=== PATIENT | female | born 1940 | race Caucasian/White ===

== ENCOUNTER 2017-04-17 15:15 | Emergency (ER) | payer MEDICARE, BC ==
[~2017-04-17] VITALS: Ht 170.2 cm; Wt 62.0 kg
[~2017-04-17 15:15] MED LIST: AMLO5 PO; ASPI81TA82 PO; BUDE3CAP PO; COZA100T PO; FENO54TA PO; LOVA40TA PO; METF500 PO; NEBI5 PO
[2017-04-17 15:19] VITALS: BP 150/88; PULSE 104; RESP 18; TEMP 98.7; O2SAT 97
--- NOTE | 2017-04-17 16:42 | PD ---
HPI Chief Complaint: GI Complaint Time Seen by Provider: 16:40 Travel History International Travel<30 days: No Contact w/Intl Traveler<30days: No Traveled to known affect area: No History of Present Illness HPI 76 YO F with PMH of HTN, anxiety presents to the ED for evaluation of 11 day history of nausea, vomiting and diarrhea. Patient states symptoms onset after she ate a bite of a "bad" tuna and mayonnaise sandwich. Patient endorses multiple episodes of watery diarrhea since then. She also endorses intermittent nausea. She endorses one episode of very dark vomit which she states "looked like poop" three days ago. States that she spoke with the nurse practitioner Dr. Raphael office who stated she could take Imodium 3 days ago. She endorses 3 doses of Imodium and no further bowel movements. The patient endorses upper and lower endoscopy within the past 5 years. She has a history of collagenous colitis. She states that the nausea has subsided today. She is here to have one episode of very dark urine evaluated. She denies dysuria, increased urgency. She has follow up appointments with PCP and GI upcoming. GI: Dr. Duvall. PCP: Dr. Frank [facility] Past Medical History High Cholesterol: Yes Diabetes: Yes Diminished Hearing: Yes Hypertension: Yes Triglycerides - High: Yes ?: Not Past Surgical History Gynecologic Surgery: Yes (Bilat. Mastectomy (non Cancerous)) Hysterectomy: Yes Joint Replacement: Yes (Total RIGHT HIP (2009)) Other Surgery: Yes (Breast implant s/p mastectomy) Social History Alcohol Use: No Tobacco Use: No (Quit in ) Substance Use: No Allergies-Medications Reported Meds & Prescriptions Reported Meds & Active Scripts Active Macrobid (Nitrofurantoin Monoh/Nitrofur Macro) 100 Mg Cap 100 Mg PO BID 5 Days Reported Aspir-81 (Aspirin) 81 Mg Tab 81 Mg PO DAILY Budesonide 3 Mg/24 Hr Cap 6 Mg PO DAILY Fenofibrate 54 Mg Tab 54 Mg PO HS Lovastatin 40 Mg Tab 40 Mg PO HS Bystolic 5 Mg Tab (Nebivolol) 5 Mg Tab 5 Mg PO HS Glucophage 500 mg (Metformin HCl) 500 Mg Tab 500 Mg PO BIDPC Norvasc (Amlodipine Besylate) 5 Mg Tab 5 Mg PO DAILY Cozaar (Losartan Potassium) 100 Mg Tab 100 Mg PO DAILY Review of Systems Except as stated in HPI: all other systems reviewed are Neg Physical Exam Narrative GENERAL: Well-nourished, well-developed pleasant, talkative white female in no acute distress. SKIN: Focused skin assessment warm/dry. HEAD: Normocephalic. EYES: No scleral icterus. No injection or drainage. NECK: Supple, trachea midline. No JVD or lymphadenopathy. CARDIOVASCULAR: Regular rate and rhythm without murmurs, gallops, or rubs. RESPIRATORY: Breath sounds equal bilaterally. No accessory muscle use. GASTROINTESTINAL: Abdomen soft, non-tender, nondistended. Active bowel sounds. No palpable masses. No hepatosplenomegaly. MUSCULOSKELETAL: No cyanosis, or edema. BACK: Nontender without obvious deformity. No CVA tenderness. Data Data Last Documented VS Vital Signs Date Time Temp Pulse Resp B/P Pulse Ox O2 Delivery O2 Flow Rate FiO2 04/17/17 17:41 98 Room Air 04/17/17 15:19 98.7 104 18 150/88 Orders Complete Blood Count With Diff (04/17/17 15:31) Comprehensive Metabolic Panel (04/17/17 15:31) Urinalysis - C+S If Indicated (04/17/17 15:31) Iv Access Insert/Monitor (04/17/17 15:31) Lipase (04/17/17 15:31) Ecg Monitoring (04/17/17 16:46) Oximetry (04/17/17 16:46) Sodium Chloride 0.9% Flush (Ns Flush) (04/17/17 17:00) Urine Culture (04/17/17 15:15) Sodium Chlor 0.9% 1000 Ml Inj (Ns 1000 M (04/17/17 17:30) Abdomen, Upright Only (04/17/17 17:26) Potassium Chloride (Kcl) (04/17/17 17:45) Labs Laboratory Tests Test 04/17/17 04/17/17 15:15 15:45 Urine Color DARK-YELLOW Urine Turbidity HAZY Urine pH 5.5 Urine Specific [place] 1.044 Urine Protein 30 mg/dL Urine Glucose (UA) NEG mg/dL Urine Ketones NEG mg/dL Urine Occult Blood NEG Urine Nitrite NEG Urine Bilirubin NEG Urine Urobilinogen 2.0 MG/DL Urine Leukocyte Esterase MOD Urine WBC 14 /hpf Urine Squamous Epithelial 1 /hpf Cells Urine Calcium Oxalate Crystals OCC /hpf Urine Mucus FEW /lpf Microscopic Urinalysis Comment CULTURE INDICATED White Blood Count 9.5 TH/MM3 Red Blood Count 4.16 MIL/MM3 Hemoglobin 13.3 GM/DL Hematocrit 39.3 % Mean Corpuscular Volume 94.5 FL Mean Corpuscular Hemoglobin 31.9 PG Mean Corpuscular Hemoglobin 33.8 % Concent Red Cell Distribution Width 13.9 % Platelet Count 173 TH/MM3 Mean Platelet Volume 8.0 FL Neutrophils (%) (Auto) 72.8 % Lymphocytes (%) (Auto) 12.1 % Monocytes (%) (Auto) 13.4 % Eosinophils (%) (Auto) 1.1 % Basophils (%) (Auto) 0.6 % Neutrophils # (Auto) 6.9 TH/MM3 Lymphocytes # (Auto) 1.2 TH/MM3 Monocytes # (Auto) 1.3 TH/MM3 Eosinophils # (Auto) 0.1 TH/MM3 Basophils # (Auto) 0.1 TH/MM3 CBC Comment DIFF FINAL Differential Comment Sodium Level 142 MEQ/L Potassium Level 3.3 MEQ/L Chloride Level 108 MEQ/L Carbon Dioxide Level 28.1 MEQ/L Anion Gap 6 MEQ/L Blood Urea Nitrogen 15 MG/DL Creatinine 0.53 MG/DL Estimat Glomerular Filtration 112 ML/MIN Rate Random Glucose 109 MG/DL Calcium Level 8.5 MG/DL Total Bilirubin 0.5 MG/DL Aspartate Amino Transf 19 U/L (AST/SGOT) Alanine Aminotransferase 21 U/L (ALT/SGPT) Alkaline Phosphatase 93 U/L Total Protein 7.2 GM/DL Albumin 3.6 GM/DL Lipase 106 U/L [facility] Medical Decision Making Medical Screen Exam Complete: Yes Emergency Medical Condition: Yes Differential Diagnosis gastroenteritis versus colitis versus GI bleed versus UTI versus metabolic derangement versus other Narrative Course 76 YO F with PMH of HTN, anxiety presents to the ED for evaluation of 11 day history of nausea, vomiting and diarrhea. Patient states symptoms onset after she ate a bite of a "bad" tuna and mayonnaise sandwich. Patient endorses multiple episodes of watery diarrhea since then. She also endorses intermittent nausea. She endorses one episode of very dark vomit which she states "looked like poop" three days ago. She began to take Imodium with permission from her primary care 3 days ago. She endorses 3 doses of Imodium and no further bowel movements. The patient endorses upper and lower endoscopy within the past 5 years. She has a history of collagenous colitis. No nausea or vomiting today. She is here to have one episode of very dark urine evaluated. She denies dysuria, increased urgency. She has follow up appointments with PCP and GI upcoming. GI: Dr. Duvall. PCP: Dr. Frank. Vitals reviewed. The patient is very well-appearing and examination. Abdominal exam completely benign. No leukocytosis or anemia and the CBC. CMP with mild hypokalemia, 3.3. Patient was administered 40 mg KCl by mouth. UA dark yellow, moderate leukocyte esterase, WBCs 14. Culture pending. Abdominal x-ray nonspecific. I discussed the results of the workup with the patient. She is prescribed Macrobid twice a day 5 days. She is instructed to discontinue Imodium, increased activity, eat a healthy diet with plenty of fiber to encourage normal bowel movements, follow-up with the primary care provider and hog ribber as planned, return for worsening symptoms. She indicated understanding of the instructions and is agreeable to the care plan. She is stable and discharged home. Diagnosis Primary Impression: Urinary tract infection Qualified Code: N39.0 - Urinary tract infection without hematuria, site unspecified Additional Impression: Hypokalemia Referrals: Final [facility] Primary Care Physician Patient Instructions: General Instructions, Urinary Tract Infection in Women ( ED) Additional Instructions: Rest, hydrate. Take all antibiotics as prescribed, even if her symptoms resolve. Take Imodium as prescribed on the label, as needed for future episodes of diarrhea. Follow-up with Dr. Silva and as discussed. Return to the ED for any urgent or emergent medical condition. Scripts Nitrofurantoin Monohydrate Macrocrystals (Macrobid)100 Mg [id number] Mg PO BID 5 Days Ref 0 Prov:Shantel Dominguez MD 04/17/17 Disposition: 01 DISCHARGE HOME Condition: Stable [place] Apr 17, 2017 16:42
[2017-04-17 17:00] LABS: AUTOMATED NEUTROPHIL # 6.9 TH/MM3 (1.8-7.7); BASOPHIL # 0.1 TH/MM3 (0-0.2); BASOPHIL % 0.6 % (0.0-2.0); EOSINOPHIL # 0.1 TH/MM3 (0-0.4); EOSINOPHIL % 1.1 % (0.0-4.0); HEMATOCRIT 39.3 % (35.0-46.0); HEMO FLAGS DIFF FINAL; LYMPH % 12.1 % (9.0-44.0); LYMPHOCYTE # 1.2 TH/MM3 (1.0-4.8); MEAN CELL VOLUME 94.5 FL (80.0-100.0); MEAN CORPUSCULAR HEMOGLOBIN 31.9 PG (27.0-34.0); MEAN CORPUSCULAR HGB CONC 33.8 % (32.0-36.0); MONO % 13.4 % (0.0-8.0); NEUT % 72.8 % (16.0-70.0); PLATELET COUNT 173 TH/MM3 (150-450); RED BLOOD COUNT 4.16 MIL/MM3 (4.00-5.30); RED CELL DISTRIBUTION WIDTH 13.9 % (11.6-17.2); WHITE BLOOD COUNT 9.5 TH/MM3 (4.0-11.0)
[2017-04-17] MEDS ORDERED: SODIUM CHLORIDE 0.9% FLUSH 10 ML FLUSH IV FLUSH PRN (17:00)
[2017-04-17 17:03] LABS: BLOOD, URINE NEG (NEG); CALCIUM OXALATE CRYSTALS,URINE OCC /hpf; GLUCOSE,URINE NEG (NEG); KETONE, URINE NEG (NEG); MUCUS URINE FEW /lpf (OCC); NITRITE,URINE NEG (NEG); PH, URINE 5.5 (5.0-8.5); SQUAMOUS EPITHELIAL CELL URINE 1 /hpf (0-5); URINE COLOR DARK-YELLOW (YELLW/STRAW)
[2017-04-17 17:05] LABS: COMMENT (UR) CULTURE INDICATED; CULTURE IF INDICATED CULTURE INDICATED
[2017-04-17 17:28] LABS: ANION GAP 6 MEQ/L (5-15); AST (GOT) 19 U/L (15-37); BICARBONATE 28.1 MEQ/L (21.0-32.0); BLOOD UREA NITROGEN 15 MG/DL (7-18); CHLORIDE 108 MEQ/L (98-107); GLOMERULAR FILTRATION RATE 112 ML/MIN (>89); POTASSIUM 3.3 MEQ/L (3.5-5.1); SODIUM (NA) 142 MEQ/L (136-145)
[2017-04-17] MEDS ORDERED: SODIUM CHLOR 0.9% 1000 ML INJ 1,000 ML IV ONE (17:30)
[2017-04-17 17:32] LABS: ALKALINE PHOSPHATASE 93 U/L (45-117); ALT (GPT) 21 U/L (10-53); TOTAL BILIRUBIN ADULT 0.5 MG/DL (0.2-1.0)
[2017-04-17 17:41] VITALS: O2SAT 98
[2017-04-17] MEDS ORDERED: POTASSIUM CHLORIDE 20 MEQ CONTROLLED RELEASE TAB PO ONE (17:45)
[2017-04-17] MEDS ORDERED: MACR100C2 PO (17:52)
--- NOTE | 2017-04-17 18:38 | RADRPT ---
EXAM DATE/TIME: 04/17/2017 18:08 [place] COMPARISON: No previous studies available for comparison. INDICATIONS : Abdominal pain MEDICAL HISTORY : None. SURGICAL HISTORY : None. ENCOUNTER: Initial ACUITY: 2 weeks PAIN SCORE: 6/10 LOCATION: Bilateral Abdomen FINDINGS: The bowel gas is nonspecific. There are no signs of obstruction or free air for technique. No defini te calcified stones are identified for technique. CONCLUSION: Nonspecific abdomen. Art Rajput MD on April 17, 2017 at 18:36 Board Certified Radiologist. This report was verified electronically.
== END 2017-04-17 19:03 | disposition home or self-care (01) ==
LOC: NEPC 15:15
DX: N39.0 Urinary tract infection, site not specified (principal); E87.6 Hypokalemia; I10 Essential (primary) hypertension; E11.9 Type 2 diabetes mellitus without complications; E78.5 Hyperlipidemia, unspecified; H91.90 Unspecified hearing loss, unspecified ear; Z79.84 Long term (current) use of oral hypoglycemic drugs; Z86.59 Personal history of other mental and behavioral disorders
CPT/HCPCS: 74000; 80053; 81001; 83690; 85025; 87086; 96360; 99284; J7030